=== PATIENT | female | born 1980 | race Caucasian/White ===

== ENCOUNTER → 2019-07-20 16:18 | Outpatient (CLI) | payer OTHER, SELFPAY ==
[2019-07-20 20:18] LABS: Urine N gonorrhoeae NOT DETECTED
[2019-07-20 20:19] LABS: Urine Chlamydia NOT DETECTED
== END ==
PROVIDERS: PCP Family Medicine; Visit Provider Specialist
DX: O09.529 Supervision of elderly multigravida, unspecified trimester (principal); Z3A.10 10 weeks gestation of pregnancy
CPT/HCPCS: 87491; 87591

== ENCOUNTER → 2019-09-11 10:59 | Outpatient (CLI) | payer OTHER, SELFPAY ==
[2019-09-15 16:19] LABS: AFP, Serum 30.1 ng/mL; Brief History NTD NG; Cigarette Smoker NO; Collection Date 112519; Donated Egg NO; Donor Egg Age NO; Estriol, Free 1.07 ng/mL; Inhibin A, Dimeric 97 pg/mL; Maternal Weight 201 lbs; Number of Fetuses NOT GIVEN; Previous Pregnancy Down Syndro NO; hCG, MoM 1.35; hCG, Serum 27.6 IU/mL
== END ==
PROVIDERS: PCP Family Medicine; Visit Provider Specialist
DX: Z34.92 Encounter for supervision of normal pregnancy, unspecified, second trimester (principal); Z3A.18 18 weeks gestation of pregnancy
CPT/HCPCS: 36415; 82105; 82677; 84702; 86336

== ENCOUNTER → 2020-01-19 08:55 | Outpatient (CLI) | payer OTHER, SELFPAY ==
[2020-01-20 14:38] LABS: Strep Grp B PCR POS for Grp B Strep
== END ==
PROVIDERS: PCP Family Medicine; Visit Provider Specialist
DX: Z34.83 Encounter for supervision of other normal pregnancy, third trimester (principal)
CPT/HCPCS: 87653